=== PATIENT | female | born 1995 | race Hispanic/Latino ===

== ENCOUNTER 2017-08-09 20:11 | Observation (INO) | payer MEDICAID ==
[~2017-08-09] VITALS: Ht 154.9 cm; Wt 77.6 kg
[~2017-08-09 20:11] MED LIST: AMOX-429 PO; MO4B PO
[2017-08-09 20:33] LABS: APPEARANCE,URINE Turbid (CLEAR); BILIRUBIN,URINE Negative (NEGATIVE); COLOR,URINE Yellow (YELLOW); GLUCOSE, URINE (UA) Negative (NEGATIVE); KETONES,URINE Negative (NEGATIVE); LEUKOCYTE ESTERASE ,URINE Large (NEGATIVE); NITRATE,URINE Negative (NEGATIVE); OCCULT BLOOD,URINE Negative (NEGATIVE); PH,URINE 7.5 (5.0-8.0); PROTEIN,URINE Negative (NEGATIVE)
[2017-08-09 20:35] LABS: BACTERIA,URINE Many /HPF (None Seen); RBC,URINE None Seen /HPF (0-1); SQUAMOUS EPITHELIAL CELL,UR 0-2 /LPF (0-2)
[2017-08-09] MEDS: LACTATED RINGERS 1000ML 1,000 ML IV SCH (21:39)
[2017-08-10] MEDS: LACTATED RINGERS 1000ML 1,000 ML IV SCH (05:40)
== END 2017-08-10 07:38 | disposition home or self-care (01) ==
LOC: EDH 20:11 → LDH 20:12
PROVIDERS: ADMIT Obstetrics & Gynecology; ATTEND Obstetrics & Gynecology
DX: O62.9 Abnormality of forces of labor, unspecified (principal); O26.893 Other specified pregnancy related conditions, third trimester; M54.5 Low back pain; R10.30 Lower abdominal pain, unspecified; Z3A.38 38 weeks gestation of pregnancy
CPT/HCPCS: 81001; 87804 ×2; 96360; 96361 ×3; 99285; G0378 ×11; J7120 ×2

== ENCOUNTER 2017-08-15 19:01 | Inpatient (IN) | payer MEDICAID ==
[2017-08-15] VITALS (8 sets, daily range): BP systolic 108–130; BP diastolic 64–89
[2017-08-15] MEDS ORDERED: LACTATED RINGERS 1000ML 1,000 ML IV PRN (19:20)
[2017-08-15] MEDS ORDERED: OXYTOCIN-LR 20 UNITS/1000 ML 1,000 ML IV SCH (19:30)
[2017-08-15] MEDS ORDERED: LACTATED RINGERS 1000ML 1,000 ML IV ONE (19:34)
[2017-08-15] MEDS ORDERED: OXYTOCIN 10 USP UNITS/ML ONE (19:35)
[2017-08-15 19:52] LABS: HEMATOCRIT 34.7 % (36-48); MEAN CORPUSCULAR HGB CONC 34.8 g/dL (32.0-36.0); MEAN CORPUSCULAR VOLUME 83.3 fL (80-100); PLATELET COUNT (AUTO) 315 K/uL (130-400); RED BLOOD CELL COUNT(AUTO) 4.16 MIL/uL (4.00-5.50); RED CELL DISTRIBUTION WIDTH 13.2 % (11.0-15.5)
[2017-08-15] MEDS ORDERED: PREN1TAB89 PO (20:29)
[2017-08-15] MEDS ORDERED: WITCH HAZEL 1 PAD TP PRN (21:15)
[2017-08-15] MEDS ORDERED: LANOLIN 30GM OINTMENT TP PRN (21:15)
[2017-08-15] MEDS ORDERED: ACETAMINOPHEN-CODEINE 300/30MG TAB PO PRN (21:15)
[2017-08-15] MEDS ORDERED: DIPH,PERTUSS(ACELL),TET VAC/PF 0.5 ML VIAL IM PRN (21:15)
[2017-08-15] MEDS ORDERED: ACETAMINOPHEN 325 MG TAB PO PRN (21:15)
[2017-08-15] MEDS ORDERED: BENZOCAINE/LANOLIN/ALOE VERA 60 ML AEROSOL TP PRN (21:15)
[2017-08-15] MEDS: IBUPROFEN 600 MG TABLET PO PRN (21:43)
[2017-08-16 03:06] VITALS: BP 122/80
[2017-08-16] MEDS ORDERED: FLU VACC QS2017-18 36MOS UP/PF 60 MCG/0.5 ML ML IM SCH (06:15)
[2017-08-16 07:19] LABS: HEMATOCRIT 33.2 % (36-48); MEAN CORPUSCULAR HEMOGLOBIN 28.2 pg (27.0-33.0); MEAN CORPUSCULAR HGB CONC 33.4 g/dL (32.0-36.0); MEAN CORPUSCULAR VOLUME 84.4 fL (80-100); NUCLEATED RED BLOOD CELLS 0.1 % (0.0-0.19); PLATELET COUNT (AUTO) 256 K/uL (130-400); RED BLOOD CELL COUNT(AUTO) 3.94 MIL/uL (4.00-5.50); RED CELL DISTRIBUTION WIDTH 13.4 % (11.0-15.5); WHITE BLOOD COUNT (AUTO) 14.2 K/uL (4.8-10.8)
[2017-08-16 07:32] VITALS: BP 112/67
[2017-08-16 08:06] LABS: RAPID PLASMA REAGIN NONREACTIVE (NONREACTIVE)
[2017-08-16] MEDS ORDERED: DOCUSATE SODIUM 100 MG CAP PO SCH (09:00)
[2017-08-16] MEDS: IBUPROFEN 600 MG TABLET PO PRN (09:46)
[2017-08-16 11:08] VITALS: BP 109/76
[2017-08-16 15:31] VITALS: BP 115/83
[2017-08-16 19:56] VITALS: BP 120/82
[2017-08-17 09:17] LABS: HEPATITIS Bs ANTIGEN SCREEN P Negative (Negative)
== END 2017-08-16 20:25 | disposition home or self-care (01) | DRG 560 ==
LOC: EDH 19:01 → LDH 19:18 → OBSVTOIN 19:22 → WSH 20:05
PROVIDERS: ADMIT Obstetrics & Gynecology; ATTEND Obstetrics & Gynecology
PROC: 10E0XZZ Delivery of Products of Conception, External Approach (ICD-10-PCS; principal; 2017-08-15)
PROC: 3E0234Z Introduction of Serum, Toxoid and Vaccine into Muscle, Percutaneous Approach (ICD-10-PCS; 2017-08-15)
DX: O80 Encounter for full-term uncomplicated delivery (principal); Z23 Encounter for immunization; Z37.0 Single live birth; Z3A.38 38 weeks gestation of pregnancy
CPT/HCPCS: 36415; 85027; 86592; 86701; 86850; 86900; 86901; 87340; 87390; G0008; J2590; J7120; Q2038